=== PATIENT | female | born 1940 | race Caucasian/White ===

== ENCOUNTER 2018-03-08 20:30 | Emergency (ER) | payer MEDICARE, BC ==
[~2018-03-08] VITALS: Ht 157.5 cm; Wt 54.4 kg
--- NOTE | 2018-03-08 20:45 | NUR ---
PT BISIA, FOR GT-REINSERTION, PLACED ON ER BED 4, SEEN AND EVAL BY DR MOSER, ASSESED GT SITE, NOTIFIED PT, SITUATION REQUIRES ADMITTION, PT REFUSED TO BE ADMITTED, RISKS AND BENEFIT EXPLAINED PT REFUSED.
--- NOTE | 2018-03-08 21:16 | NUR ---
RAMIRO MCKNIGHT CALLED TO TRANSPORT PATIENT TO [facility] ETA [id number] TRIP [id number]
[2018-03-08 22:47] VITALS: BP 125/69
== END 2018-03-08 20:43 ==
LOC: ER 20:32
DX: L03.311 Cellulitis of abdominal wall (principal); E11.9 Type 2 diabetes mellitus without complications; F32.9 Major depressive disorder, single episode, unspecified; E03.9 Hypothyroidism, unspecified; D64.9 Anemia, unspecified; Z93.1 Gastrostomy status